=== PATIENT | male | born 1940 | race Caucasian/White ===

== ENCOUNTER → 2018-07-25 | Outpatient (CLI) | payer MEDICARE, BC ==
--- NOTE | 2018-07-25 16:02 | NM ---
EXAMINATION TYPE: NM bone scan whole body DATE OF EXAM: 07/25/2018 COMPARISON: Outside x-ray dated 02/23/2017 . HISTORY: Low back pain Delayed whole-body scanning was performed following the injection of 23.7 mCi Tc 99m MDP. Images acq uired 3 hours post injection. FINDINGS: Faint abnormal uptake at L5-S1 on the right. Abnormal uptake involving the right anterior column of the acetabulum is nonspecific. There is faint uptake involving the thoracic spine likely degenerative. Abnormal uptake involving the shoulders likely post arthritic. Abnormal uptake involving the right mandible likely related to ines odontal disease There is abnormal uptake involving the right 12th rib and lateral margin of the proximal right sixth rib. At the level of L1 there is bilateral areas of intense abnormal uptake. IMPRESSION: 1. Abnormal uptake involving the right rib cage likely related to previous fracture. 2. Abnormal uptake involving the lower lumbar spine is degenerative compatible with the x-ray. 3. Intense area of abnormal uptake at L1 is nonspecific may be related to the compression deformity s een by recent x-ray and may represent a recent compression fracture. Recommend MRI.
== END ==
LOC: RADNMMAIN 11:18
PROVIDERS: ATTEND Physical Medicine & Rehabilitation
DX: M54.5 Low back pain (principal)
CPT/HCPCS: 78306; A9503

== ENCOUNTER → 2018-08-08 | Outpatient (CLI) | payer MEDICARE, BC ==
--- NOTE | 2018-08-08 17:11 | BD ---
EXAMINATION TYPE: Axial Bone Density DATE OF EXAM: 08/08/2018 COMPARISON: NONE CLINICAL HISTORY: 78-year-old male disorder of bone lumbar vertebral fracture Height: 65.7 IN Weight: 175 LBS FRAX RISK QUESTIONS: Family History (Parent hip fracture): YES FATHER AGE 90 History of Fracture in Adulthood: YES L1 FX AGE 77 RISK FACTORS HISTORY OF: Spine Fracture: YES L1 When: AGE 77 Active: LIMITED Lost more than 2 inches in height since high school: YES 3" MEDICATIONS: Additional Medications: MULTI VIT, CLARITIN D, PAIN MEDS EXAM MEASUREMENTS: Bone mineral densitometry was performed using the [employer] System. Bone mineral density about the R hip (g/cm2): 0.887 Bone mineral density about the L hip (g/cm2): 0.910 T Score values are as follows: -----R Neck: -1.1 -----L Neck: -0.9 -----R Total: -1.0 -----L Total: -0.8 Bone mineral density BASELINE Bone mineral density about the R Wrist (g/cm2): 0.679 T Score values are as follows: -----Dist. R+U: -0.8 -----Prox. R+U: -0.8 -----Radius total: -1.1 Bone mineral density BASELINE IMPRESSION: Osteopenia (T Score between -2.5 and -1). There is slightly increased risk of fracture and the patient may be considered for treatment. Re-Screen 2-5 years. NOTE: T-SCORE=SD OF THE YOUNG ADULT MEAN.
== END | disposition home or self-care (01) ==
LOC: RADBDWWP 07:35
PROVIDERS: ATTEND Internal Medicine
DX: M85.80 Other specified disorders of bone density and structure, unspecified site (principal)
CPT/HCPCS: 77080

== ENCOUNTER → 2018-08-15 | Outpatient (CLI) | payer MEDICARE, BC ==
[2018-08-15 13:48] LABS: Basophils # (A) 0.1 k/uL (0-0.2); Basophils % (A) 1 %; Eosinophils # (A) 0.2 k/uL (0-0.7); Eosinophils % (A) 2 %; HGB 13.6 gm/dL (13.0-17.5); Lymphocytes # (A) 1.6 k/uL (1.0-4.8); Lymphocytes % (A) 13 %; MCH 29.8 pg (25.0-35.0); MCHC 32.5 g/dL (31.0-37.0); MCV 91.7 fL (80.0-100.0); Mean Platelet Volume 7.5; Monocytes % (A) 8 %; Neutrophils # (A) 9.5 k/uL (1.3-7.7); Neutrophils % (A) 76 %; Platelet Count 316 k/uL (150-450); RBC 4.58 m/uL (4.30-5.90); RDW 13.6 % (11.5-15.5); WBC 12.5 k/uL (3.8-10.6)
[2018-08-15 13:52] LABS: Partial Thromboplastin Time 25.7 sec (22.0-30.0); Prothrombin Time 10.3 sec (9.0-12.0)
[2018-08-15 13:56] LABS: Appearance,Urine Cloudy (Clear); Bilirubin,Urine Negative (Negative); Blood,Urine Negative (Negative); Color,Urine Yellow; Glucose,Urine (UA) Negative (Negative); Hyaline Casts,Urine 12 /lpf (0-2); Ketones,Urine Negative (Negative); Leukocyte Esterase,Urine Negative (Negative); Mucus,Urine Rare /hpf; Nitrite,Urine Negative (Negative); PH, Urine 5.5 (5.0-8.0); Protein,Urine Trace (Negative); Specific Gravity,Urine 1.019 (1.001-1.035); Urobilinogen,Urine <2.0 mg/dL (<2.0); WBC,Urine 5 /hpf (0-5)
[2018-08-15 14:02] LABS: Calcium 10.8 mg/dL (8.4-10.2); Potassium 5.1 mmol/L (3.5-5.1)
--- NOTE | 2018-08-15 14:13 | XR ---
"EXAMINATION TYPE: XR chest 2V DATE OF EXAM: 08/15/2018 COMPARISON: NONE TECHNIQUE: PA and lateral views submitted. HISTORY: Presurgical testing FINDINGS: There is a 6.2 cm right hilar mass suspicious for malignancy. Hyperinflation compatible COPD. No pleu ral effusion or pneumothorax. Biapical pleural thickening. Hypertrophic and degenerative change of th e spine. IMPRESSION: 1. COPD with a 6.2 cm suspicious mass in the right perihilar region. Report called to the patient's p hysician. A [place] level critical message alert has been initiated for Jaclyn Marti [id number] via the [employer] | Critical Results System on 08/15/2018 2:08 PM. This message alert has been sent to Jaclyn Marti [id number] via the preferences provided by the clinician for the receipt of Radiology Critical Findi ngs. Message ID [id number]."
== END | disposition home or self-care (01) ==
LOC: LABPAT 11:26
PROVIDERS: ATTEND Orthopaedic Surgery Orthopaedic Surgery of the Spine
DX: Z01.818 Encounter for other preprocedural examination (principal); J44.9 Chronic obstructive pulmonary disease, unspecified; R91.8 Other nonspecific abnormal finding of lung field; S32.019A Unspecified fracture of first lumbar vertebra, initial encounter for closed fracture; Z01.812 Encounter for preprocedural laboratory examination
CPT/HCPCS: 71046; 80048; 81001; 85025; 85610; 85730

== ENCOUNTER → 2018-08-17 | Outpatient (CLI) | payer MEDICARE, BC ==
--- NOTE | 2018-08-18 07:18 | CT ---
EXAMINATION TYPE: CT chest wo con DATE OF EXAM: 08/17/2018 COMPARISON: Chest x-ray from 2 days ago. Whole body bone scan July 25, 2018 HISTORY: Abnormal finding in lung field CXR, which is in PACS CT DLP: 584 mGycm. Automated Exposure Control for Dose Reduction was Utilized. TECHNIQUE: CT scan of the thorax is performed without IV contrast. FINDINGS: LUNGS: There is background moderate to severe underlying emphysematous change most prominent in the b ilateral upper lungs. Corresponding to chest x-ray there is right suprahilar/upper lobe mass posterio rly inferiorly measuring 4.9 x 4.2 cm axial image 22 x 5.1 cm craniocaudal dimension sagittal image 4 7 causing adjacent inferior displacement of the right minor fissure, this extends to the right upper lobe bronchus which is narrowed. Subcentimeter scarlike opacity lateral right lung base on axial imag e 48 is noted. Left lung is clear. There is incidental 4 mm subpleural nodule lateral inferior left u pper lobe axial image 20. MEDIASTINUM: Lack of IV contrast is noted to limit evaluation for mediastinal and especially hilar ad enopathy. There are no definitive greater than 1 cm hilar or mediastinal lymph nodes. No cardiomega ly or pericardial effusion is seen. OTHER: There are suspicious heterogeneous hypodense lesions throughout the liver felt to reflect meta static disease, largest measures 7.5 cm long axis transversely axial image 66. There is destructive l esion with soft tissue mass involving lateral left eighth rib there are axial image 49. There is mode rate compression type fracture deformity at L1 level may be acute in nature is lucent see is noted. T here is suspected healing fracture posterior right 12th rib axial image 64. IMPRESSION: 1. Metastatic disease identified involving the liver as well as left lateral seventh rib, suspect add itional metastatic focus involving right upper lobe versus primary neoplasm. 2. Suspect acute moderate compression fracture L1 level without definitive underlying neoplasm or pat hologic fracture accounting for bone scan abnormality. Suspect acute/subacute right T12 rib fracture accounting for bone scan abnormality. 3. Background moderate to severe emphysematous change without acute pulmonary process. Recommendation: Tissue biopsy for further analysis can be performed, safest lesion is likely destruct maxi left lateral mid rib lesion under CT guidance.
== END ==
LOC: RADCTMAIN 15:56
PROVIDERS: ATTEND Internal Medicine
DX: J43.9 Emphysema, unspecified (principal)
CPT/HCPCS: 71250

== ENCOUNTER 2018-08-18 07:20 | Day surgery (SDC) | payer MEDICARE, BC ==
[2018-08-15 16:19] VITALS: BMI 26.6
[~2018-08-18 07:20] MED LIST: BACITRACIN 50,000 UNIT, POLYMYXIN B 500,000 UNIT in SODIUM CHLORIDE 0.9% IRRIGATIO 1,00... IRRIGATION ONE; HYDROmorphone 0.5 MG/0.5 ML SYRINGE IVP PRN; LACTATED RINGERS 1,000 ML IV SCH; LIDOCAINE 1% 20 ML VIAL (10MG/ML) FOR IV START INTRADERMA PRN; ONDANSETRON 4 MG/2 ML VIAL IVP ONE; ceFAZolin IN SWFI 2 GM/20 ML SYRINGE IVP ONE
[2018-08-18 07:59] VITALS: RESP 16
[2018-08-18] MEDS ORDERED: PHENYLEPHRINE-0.9% NACL SYG 1 MG/10 ML SYRINGE ONE (09:14)
[2018-08-18] MEDS ORDERED: SUCCINYLCHOLINE CHLORIDE 100 MG/5 ML SYR IV ONE (09:14)
[2018-08-18] MEDS ORDERED: LIDOCAINE 1% INJ 10MG/ML (20 ML MDV) ONE (09:14)
[2018-08-18] MEDS ORDERED: PROPOFOL 10 MG/ML 20 ML VIAL IV ONE (09:14)
[2018-08-18] MEDS ORDERED: fentaNYL (PF) 50 MCG/ML 2 ML AMP ONE (09:14)
[2018-08-18] MEDS ORDERED: MIDAZOLAM 2 MG/2 ML VIAL ONE (09:14)
[2018-08-18] MEDS ORDERED: IOPAMIDOL-370 50ML BTL MISCELLANE ONE (09:40)
[2018-08-18] MEDS ORDERED: BUPIVACAINE-EPI 0.5%-1:200,000 10 ML VIAL SQ ONE (09:40)
[2018-08-18 10:17] VITALS: TEMP 96.8
[2018-08-18] MEDS ORDERED: ONDANSETRON 4 MG/2 ML VIAL IVP PRN (10:25)
[2018-08-18] MEDS ORDERED: BENZOCAINE/MENTHOL LOZENG 1 EACH LOZENGE MUCOUS MEM PRN (10:25)
[2018-08-18] MEDS ORDERED: IBUPROFEN 600 MG TAB PO PRN (10:25)
[2018-08-18] MEDS ORDERED: KETOROLAC 30 MG/ML 1 ML VIAL IVP PRN (10:25)
[2018-08-18] MEDS ORDERED: HYDROcodone/APAP 5-325MG 1 EACH TAB PO PRN ×2 (10:25)
[2018-08-18] MEDS ORDERED: HYDROmorphone 0.5 MG/0.5 ML SYRINGE IVP PRN (10:25)
[2018-08-18] MEDS ORDERED: traMADol 50 MG TAB PO PRN (10:26)
[2018-08-18] MEDS ORDERED: SODIUM CHLORIDE 0.9% 1,000 ML IV SCH (10:30)
--- NOTE | 2018-08-18 10:32 | P.OP ---
Date of Procedure: 08/18/18 Preoperative Diagnosis: L1 vertebral compression fracture, pathologic, subacute Severe low back pain Postoperative Diagnosis: Same Anesthesia: GETA Pathology: other (L1 vertebral body biopsy sent to pathology) Condition: stable Disposition: PACU Description of Procedure: BRIEF OPERATIVE NOTE Preoperative Diagnosis: Vertebral compression fracture L1, pathologic subacute Postoperative Diagnosis: Same Procedure: Kyphoplasty L1 Vertebral body biopsy L1 Use of biplanar fluoroscopic guidance Surgeon: Dr. Marti Sports Manager: None Anesthesia: General anesthesia Estimated blood loss: Less than 10 mL Specimen: Vertebral body L1 biopsy sent to pathology in formalin Complications: None apparent Components implanted: Bone cement Disposition: To recovery room in good stable condition. OPERATIVE INDICATIONS The patient has been having issues in their back ever since sustaining a minor injury. The patient has been through conservative treatment. He is not able tolerate any bracing and was having significant debility and pain. He had further workup showed significant uptake at L1 but possible other uptake at his ribs and a possible alternate primary. They attempted conservative care with bracing however they're not having any benefit despite brace use. They continue to have significant pain and debility due to their fracture. With the possibility that the fracture was pathologic and his continued pain we felt in be useful to obtain biopsy as well as provide treatment for the symptoms and stabilized the fracture. We discussed various treatment options including surgery, and the patient wishes to proceed with surgery We discussed the risk, patient's alternatives and benefits of surgery including but not limited to, risk of bleeding risk of infection, risk of need for further surgery, risk of decreased, loss of motion, loss of function, cement extravasation, nerve damage , paralysis, heart attack, blindness and . OPERATIVE SUMMARY After discussing all the risks, patient alternatives and benefits at length, the patient elected to proceed with surgical intervention, signed informed consent, and presented for their procedure. The patient was seen and examined in the preoperative holding area and the surgical site was marked. The patient was given antibiotics and brought to the operating room. The patient was sedated and intubated by anesthesia in standard fashion. The patient was positioned on to the operating room table in a prone position on the appropriate well-padded and well molded bilateral chest rolls. We were careful to pad any bony prominences and pressure points. We were careful to maintain the patient's cervical spine and good neutral alignment and position throughout. We used 2 C-arm machines to establish biplanar fluoroscopic guidance in AP and lateral positions. We were able to localize the fractures appropriately. The patient was prepped and draped in a normal standard fashion. An appropriate timeout and keystone protocol performed. We were able to proceed with the surgery. The local wound area was infiltrated with local anesthetic. An incision was made over the lateral aspect of the pedicle over the appropriate levels with a small 2 mm stab incision. Intraoperative fluoroscopy was taken which showed a marker at the appropriate level of L1 on the left. With the appropriate level positively confirmed, I was able to position a sharp trocar over the lateral aspect of the pedicle. As able to advance the trocar into the pedicle and into the posterior aspect of vertebral body being careful to avoid penetration cephalad caudad or medially. The trocar was placed appropriately into the posterior aspect of vertebral body at the appropriate levels of L1. This was confirmed with C-arm guidance. With the trocar intact I was then able to take a bone biopsy with a biopsy punch or a bony drill. The biopsy specimen was passed off to be sent to pathology in formalin. I was then able to place the kyphoplasty balloon within the vertebral body. The position was checked on C-arm. I was able to inflate the balloon under low pressure and visualization with C-arm. The balloon was well enclosed within the vertebral body. The cement was prepared. With the cement at appropriate working condition the balloons were deflated and removed. I was able to place bony cement with trocar with the cement delivery device under low pressure. It had good fill within the vertebral body of L1 with approximately 9 mL of bone cement. There is no evidence of any extravasation of the cement posteriorly toward the canal. The cement was well contained at the appropriate levels. The cement was allowed to cure appropriately. The trochars removed and final images were taken on C-arm. This showed the cement at the appropriate levels. We were able to proceed with closure. The wound was cleaned and dried and dressed with the appropriate dressing. The drapes were broken down. The patient was gently rolled back onto their hospital bed being careful to maintain their cervical spine and good neutral alignment and position. They were woken up by anesthesia, extubated, and brought to the recovery room in good stable condition. The patient will be admitted to the hospital for observation and for appropriate postoperative care, medical management and monitoring. We will continue to follow them closely about the postoperative course.
--- NOTE | 2018-08-18 10:47 | XR ---
EXAM TYPE: LUMBAR SPINE X RAY SERIES COMPARISON: NONE HISTORY: Kyphoplasty TECHNIQUE: 4 views are submitted. FINDINGS: Limited intraoperative images are provided demonstrating kyphoplasty of a vertebral body segment. IMPRESSION: 1. Intraoperative image
[2018-08-18 11:40] VITALS: BP 164/88; PULSE 86
--- NOTE | 2018-08-18 11:45 | FL ---
EXAMINATION TYPE: FL guidance operating room DATE OF EXAM: 08/18/2018 HISTORY: Flouroscopy time 41 seconds of fluoroscopy provided. IMPRESSION: 1. Fluoroscopy time.
[2018-08-18] MEDS ORDERED: LORATADINE-PSEUDOEPH 5-120 MG 1 EACH TAB.ER.12H PO SCH (21:00)
[2018-08-19] MEDS ORDERED: MULTIVITAMINS, THERA 1 EACH TAB PO SCH (12:00)
== END 2018-08-18 11:47 | disposition home or self-care (01) ==
LOC: OR 07:20
PROVIDERS: ATTEND Orthopaedic Surgery Orthopaedic Surgery of the Spine
DX: S32.010A Wedge compression fracture of first lumbar vertebra, initial encounter for closed fracture (principal); Z87.891 Personal history of nicotine dependence; Z85.828 Personal history of other malignant neoplasm of skin; M47.817 Spondylosis without myelopathy or radiculopathy, lumbosacral region; M41.26 Other idiopathic scoliosis, lumbar region; M48.062 Spinal stenosis, lumbar region with neurogenic claudication; J44.9 Chronic obstructive pulmonary disease, unspecified; M19.90 Unspecified osteoarthritis, unspecified site; N40.0 Benign prostatic hyperplasia without lower urinary tract symptoms; B02.9 Zoster without complications; Z80.0 Family history of malignant neoplasm of digestive organs; Z82.49 Family history of ischemic heart disease and other diseases of the circulatory system; Z79.1 Long term (current) use of non-steroidal anti-inflammatories (NSAID); Z79.899 Other long term (current) drug therapy
CPT/HCPCS: 22514; 20251; 88342; 88307; 88311; 88341; 72100; C1713; J2250; J2405; J2001; J3010; J2370; J0330; J2704; J0690; Q9967; 36415; 86850; 86900; 86901

== ENCOUNTER → 2018-08-27 | Outpatient (CLI) | payer MEDICARE, BC ==
--- NOTE | 2018-08-29 10:22 | PE ---
Nuclear medicine PET/CT HISTORY: Lung carcinoma, initial Patient received 11.2 mCi F-18 FDG intravenously in delayed scanning was performed from the skull bas e to the mid thighs. Localization and attenuation correction CT scan was performed. Correlation to CT chest 08/17/2018 Neck and chest: Mild asymmetric uptake seen in the level of the vocal cords is of questionable clinic al significance. No supraclavicular or cervical adenopathy. No axillary adenopathy. There is a soft t issue mass in the right upper lobe extending to the right hilar region, the mass measures approximate ly 5.6 cm in greatest dimension, there may be some extension to the pleural surface the posterior rig ht upper lobe as well as the level of the mainstem bronchus and mediastinum, there is narrowing of th e upper lobe bronchus. There is associated hypermetabolic uptake, SUV 12.3. Uptake along the musculat ure at the level of the lateral aspect of the scapula is noted without definite mass. Emphysematous c hanges are present within the lungs. Multiple masses are present within the liver with associated hypermetabolic uptake. Largest mass dave ures approximately 8 cm in size. SUV is ranging 10.6-19. Osseous structures: There is a large mass shows destruction of the inferior pubic ramus, there is ass ociated soft tissue mass measuring approximately 6 to 7 cm., SUV 9.8. Seventh rib on the left also sh ows destruction, associated soft tissue mass and hypermetabolic uptake, SUV 11.2. The fifth rib also shows some increased uptake laterally in the left, the right seventh rib shows associated hypermetabo lic uptake, SUV 3.6. L1 vertebral body shows associated hypermetabolic uptake and compression deformi ty, SUV is 8.7. Mild retropulsion. IMPRESSION: Metastatic disease. Additional findings above.
== END | disposition home or self-care (01) ==
LOC: RADPETMAIN 15:58
PROVIDERS: ATTEND Internal Medicine Hematology & Oncology
DX: C34.11 Malignant neoplasm of upper lobe, right bronchus or lung (principal); J43.9 Emphysema, unspecified; R16.0 Hepatomegaly, not elsewhere classified; M89.8X8 Other specified disorders of bone, other site; M79.89 Other specified soft tissue disorders; G95.29 Other cord compression
CPT/HCPCS: 78815; A9552

== ENCOUNTER → 2018-09-09 | Outpatient (CLI) | payer MEDICARE, BC ==
--- NOTE | 2018-09-09 12:15 | MR ---
EXAMINATION TYPE: MR brain wo/w con DATE OF EXAM: 09/09/2018 COMPARISON: NONE HISTORY: Secondary malignant neoplasm of bone. Newly diagnosed metastatic lung cancer. TECHNIQUE: Multiplanar, multisequence images of the brain and brainstem is performed without and with IV contras t, utilizing 7.5 mL intravenous Gadavist . FINDINGS: Diffusion weighted images demonstrate no evidence of a recent infarct or other diffusion ab normality. There is no worrisome extra-axial fluid collection. There is ventricular and sulcal promi nence consistent with diffuse cerebral atrophy. Cavum septum pellucidum is present. There are focal a nd confluent areas of T2 hyperintensity seen throughout the superficial, deep, and periventricular wh ite matter. Lesions are nonspecific in appearance and distribution but most likely on basis of produc t of chronic small vessel ischemic change in patient of this age. Midline structures demonstrate normal morphology. The craniocervical junction appears within normal limits. Post contrast images demonstrate no abnormal enhancement. The dural venous sinuses appear pa tent. There is mucosal thickening with near complete fluid filling of the left frontal sinus. There i s mild to moderate mucosal thickening involving ethmoid sinuses bilaterally. There is dependent air-f luid level in the left sphenoid sinus. The globes are intact bilaterally. IMPRESSION: There is moderate diffuse cerebral atrophy and fairly advanced chronic small vessel ische apple change. There is possible acute on chronic paranasal sinus disease. No enhancing lesions to sugge st metastatic disease however are present.
== END | disposition home or self-care (01) ==
LOC: RADMRIMAIN 10:46
PROVIDERS: ATTEND Internal Medicine Hematology & Oncology
DX: G31.1 Senile degeneration of brain, not elsewhere classified (principal); I67.82 Cerebral ischemia; C79.51 Secondary malignant neoplasm of bone
CPT/HCPCS: 70553; A9585